=== PATIENT | female | born 1985 | race African-American/Black ===

== ENCOUNTER 2023-06-21 17:55 | Emergency (ER) | payer MEDICAID ==
[~2023-06-21] VITALS: Ht 177.8 cm; Wt 105.0 kg
[2023-06-21 18:02] VITALS: O2SAT 98
[2023-06-21] MEDS ORDERED: ONDANSETRON 4MG ODT PO STA (19:21)
[2023-06-21] MEDS ORDERED: KETOROLAC 30MG/ML VIAL IM STA (19:21)
[2023-06-21 19:55] LABS: BASOPHILS % 0.2 % (0.0-2.0); DIFFERENTIAL COMMENT 0; EOSINOPHILS % 0.7 % (0.0-5.0); HEMOGLOBIN. 12.9 g/dL (12.0-16.0); LYMPHOCYTES % 7.2 % (20.0-50.0); MEAN CORPUSCULAR HEMOGLOBIN 30.4 pg (28.0-32.0); MEAN CORPUSCULAR HGB CONC 33.1 g/dL (31.0-37.0); MEAN CORPUSCULAR VOLUME 91.9 fL (81.0-99.0); MEAN PLATELET VOLUME 8.2 fl (7.4-10.4); MONOCYTES % 3.7 % (2.0-8.0); NEUTROPHILS % 88.2 % (40.0-76.0); PLATELET 409 x1000/uL (130-400); RED BLOOD CELL COUNT 4.24 mill/uL (4.2-5.4); RED CELL DISTRIBUTION WIDTH 15.6 % (11.6-14.6); WHITE BLOOD COUNT 8.1 x1000/uL (4.5-11.0)
[2023-06-21 20:07] LABS: ALANINE AMINOTRANSFERASE 9 IU/L (10-49); ALBUMIN 3.9 g/dL (3.2-4.8); ASPARTATE AMINOTRANSFERASE 15 IU/L (<34); BILIRUBIN TOTAL 0.5 mg/dL (0.1-1.0); CALCIUM 8.9 mg/dL (8.7-10.4); CARBON DIOXIDE 21 mEq/L (21-32); CHLORIDE 105 mEq/L (98-107); CREATININE 0.8 mg/dL (0.6-1.0); GLUCOSE 86 mg/dL (70-105); POTASSIUM 3.6 mEq/L (3.5-5.1); PROTEIN TOTAL 7.5 g/dL (6.0-8.3); SODIUM 136 mEq/L (136-145); UREA NITROGEN BLOOD 13 mg/dL (9-23)
[2023-06-21 20:08] LABS: HCG SCREEN NEGATIVE
[2023-06-21 21:12] LABS: GLUCOSE URINE NEGATIVE (NEGATIVE); KETONES URINE 2+ (NEGATIVE)
[2023-06-21 21:32] LABS: CLARITY URINE CLEAR (CLEAR); COLOR URINE YELLOW (YELLOW); NITRITE URINE NEGATIVE (NEGATIVE); OCCULT BLOOD URINE NEGATIVE (NEGATIVE); PH URINE 7.5 (4.5-8.0); PROTEIN URINE NEGATIVE (NEGATIVE); SPECIFIC GRAVITY URINE 1.026 (1.005-1.030)
[2023-06-21 21:33] LABS: LEUKOCYTE ESTERASE URINE NEGATIVE (NEGATIVE)
[2023-06-21] MEDS ORDERED: IBUP-2030 MT (23:20)
[2023-06-21] MEDS ORDERED: CEPH500C2 MT (23:24)
[2023-06-21] MEDS ORDERED: KETOROLAC 30MG/ML VIAL IM NR (23:45)
[2023-06-22 00:19] VITALS: BP 140/67; PULSE 87; RESP 16; TEMP 98.1
== END 2023-06-22 00:22 | disposition home or self-care (01) ==
LOC: ER 17:55
DX: R10.9 Unspecified abdominal pain (principal); F12.10 Cannabis abuse, uncomplicated
CPT/HCPCS: 99284; 74176; 80053; 81003; 84703; 83690; 85025; 36415; J1885